=== PATIENT | male | born 1960 | race Caucasian/White ===

== ENCOUNTER 2024-12-25 19:33 | Day surgery (SDC) | payer MEDICARE, MEDICAID, SELFPAY ==
[2024-12-25 19:45] VITALS: BP 125/92; PULSE 108; RESP 16; TEMP 36.4; O2SAT 97; BMI 32.0
--- NOTE | 2024-12-25 19:45 | ED.GENADULT ---
HPI - General Adult General Chief complaint: General Medical Stated complaint: ? piece of chicken stuck in chest Time Seen by Provider: 12/25/24 22:10 Source: patient Mode of arrival: ambulatory Limitations: no limitations History of Present Illness ED Provider: Kai BONE HPI narrative: The patient is a 64-year-old male presenting to the ED with a history of recurrent esophageal foreign bodies with 2 previous esophageal dilations, most recently performed in 2017 while living in [place]. Patient reports they just recently moved to the area, today at approximately 16:30 he was eating chicken only developed the sensation of an esophageal foreign body with inability tolerate additional p.o. solids or fluids. Patient attempted drinking Coca-Cola without relief, has been spitting up saliva since that time and presents to the ED for evaluation and management. Related Data Home Medications ?Medication ?Instructions ?Recorded ?Confirmed apixaban 5 mg tablet (Eliquis) 5 mg PO BID 12/26/24 12/26/24 aripiprazole 2 mg tablet 2 mg PO BID 12/26/24 12/26/24 atorvastatin 10 mg tablet 10 mg PO DAILY 12/26/24 12/26/24 clonazepam 1 mg tablet 0.5 mg PO TID PRN anxiety 12/26/24 12/26/24 clonidine HCl 0.1 mg tablet 0.2 mg PO BEDTIME 12/26/24 12/26/24 gabapentin 300 mg capsule 900 mg PO TID 12/26/24 12/26/24 omeprazole 20 mg capsule,delayed 20 mg PO DAILY 12/26/24 12/26/24 release quetiapine 100 mg tablet 200 mg PO BEDTIME 12/26/24 12/26/24 sildenafil 25 mg tablet 25 mg PO NEEDED 12/26/24 12/26/24 Allergies Allergy/AdvReac Type Severity Reaction Status Date / Time No Known Allergies Allergy Verified 12/25/24 19:49 Review of Systems Review of Systems: Yes all other systems are reviewed and are negative PMFSH Past Medical History Medical History (Updated 12/26/24 @ 04:08 by Loreta Tse RN) Acute deep vein thrombosis (DVT) of calf muscle vein of left lower extremity History of pulmonary embolus (PE) Surgical History (Updated 12/26/24 @ 04:06 by Loreta Tse RN) Hx laparoscopic cholecystectomy Status post right rotator cuff repair Status post left rotator cuff repair History of esophagogastroduodenoscopy (EGD) Social History Social History Patient Tobacco Use Status: Never used Tobacco Advance Directives: No Advance Directives Information Provided: No Do you have a plan to hurt others: No Plan Physical Exam ED Vital Signs: Vital Signs - 24 hr 12/25/24 19:45 12/25/24 21:27 12/25/24 22:55 Temperature 97.6 F Pulse Rate 108 H 101 H 100 Respiratory Rate 16 18 Blood Pressure 125/92 H 127/95 H 128/92 H Pulse Oximetry 97 96 Oxygen Delivery Method Room Air Room Air Oxygen Flow Rate 12/25/24 23:54 12/26/24 03:03 12/26/24 03:05 Temperature 98.5 F 97.2 F Pulse Rate 106 H 99 Respiratory Rate 20 25 H Blood Pressure 106/80 83/46 L 102/64 Pulse Oximetry 95 89 L Oxygen Delivery Method Room Air Room Air Oxygen Flow Rate 94 12/26/24 03:08 12/26/24 03:13 12/26/24 03:18 Temperature Pulse Rate 98 97 100 Respiratory Rate 13 14 14 Blood Pressure 116/75 117/78 121/77 Pulse Oximetry 92 95 94 Oxygen Delivery Method Nasal Cannula with ETCO2 Nasal Cannula with ETCO2 Nasal Cannula with ETCO2 Oxygen Flow Rate 2 2 2 12/26/24 03:33 12/26/24 03:34 12/26/24 03:48 Temperature Pulse Rate 99 100 Respiratory Rate 17 20 Blood Pressure 148/88 H 142/87 H Pulse Oximetry 91 L 94 94 Oxygen Delivery Method Room Air Nasal Cannula with ETCO2 Nasal Cannula with ETCO2 Oxygen Flow Rate 2 2 12/26/24 04:03 12/26/24 04:08 12/26/24 04:13 Temperature Pulse Rate 99 Respiratory Rate 13 19 Blood Pressure 120/72 Pulse Oximetry 94 96 94 Oxygen Delivery Method Nasal Cannula with ETCO2 Nasal Cannula with ETCO2 Room Air Oxygen Flow Rate 2 2 BMI result Body Mass Index 32.0 CONSTITUTIONAL: The patient appears non-toxic, well nourished and in no acute distress. Vital signs as documented. HEAD: Atraumatic, normocephalic. EYES: EOMs grossly intact, pupils equal, conjunctiva clear, no exudate. ENT: Nares patent, no discharge. Airway patent, no audible stridor, visible mucosa is pink and moist without noted lesions. Posterior pharynx shows midline nonedematous uvula, no peritonsillar or tonsillar swelling, no tonsillar exudate, no visible pooling secretions. NECK: Trachea is midline, no obvious masses or gross abnormalities. CHEST: Symmetric movement, normal appearance. LUNGS: LS present and CTAB, no w/r/r. Non-labored work of breathing. CARDIAC: Regular Rhythm, S1/S2 appreciated, no murmurs, rubs or gallops. ABDOMEN: Abdomen soft and non-tender x4 quadrants, no palpable masses or organomegaly. : Deferred. EXTREMITIES: Normal tone, moves all extremities spontaneously without reported pain. No obvious acute injury or deformity noted. NEURO: Alert and oriented x3, CN II-XII appear grossly intact. Cerebellar Functioning grossly intact. No obvious sensory or motor deficits. Speech clear and appropriate. PSYCH: normal affect, appropriate eye contact, fluid speech, with appropriate response to questioning. No reported suicidality or homicidality. SKIN: Warm, dry, color appropriate, normal turgor. No rashes noted. Course Course Course Narrative: This is a rapid medical exam performed by Misael Cline NP: Additional HPI, ROS, PE not included below will be deferred to primary provider. Patient is a 64-year-old male with history of esophageal stricture and dilation x 2 presenting with complaint of foreign body sensation since around 4pm after eating chicken. Managing secretions without difficulty in triage but has been unable to tolerate liquids. When asked where he feels FB sensation, he points to xiphoid area. Medications Administered Discontinued Medications Generic Name Dose Route Start Last Admin Trade Name Freq PRN Reason Stop Dose Admin Glucagon 1 mg 12/25/24 22:26 12/25/24 22:55 Glucagon Hcl 1 Mg Vial IVPUSH 12/25/24 22:27 1 mg ONCE ONE Administration Nitroglycerin 0.4 mg 12/25/24 22:26 12/25/24 22:55 Nitroglycerin 0.4 Mg Tab.Subl SUBLINGUAL 12/25/24 22:27 0.4 mg ONCE ONE Administration Medical Decision Making Medical Decision Making MDM Narrative: 11:50 PM 12/25/2024 (Petros BONE): The patient is a 64-year-old male presenting to the ED with a history of recurrent esophageal foreign bodies with 2 previous esophageal dilations, most recently performed in 2017 while living in [place]. Patient reports they just recently moved to the area, today at approximately 16:30 he was eating chicken only developed the sensation of an esophageal foreign body with inability tolerate additional p.o. solids or fluids. Patient attempted drinking Coca-Cola without relief, has been spitting up saliva since that time and presents to the ED for evaluation and management. Exam was noncontributory. The patient was treated with glucagon and sublingual nitroglycerin, however unfortunately upon reassessment, despite attempted treatment, the patient continues to have inability to tolerate p.o. fluids and reports a persistent foreign body sensation. The patient's case has been discussed with Dr. Thomson from GI who will notify nursing field supervisor and will come in to perform endoscopy. 1:31 AM 12/26/2024 (Petros BONE): Dr. Thomson from GI is present in the ED to evaluate the patient. Admission/Observation Consideration of admission/observation: Escalation of care including admission/observation considered Lab Data 12/26/24 00:33 12/26/24 00:33 Labs: Lab Results 12/26/24 Range/Units 00:33 WBC 18.3 H (4.8-10.8) X10*3/uL RBC 6.11 H (4.60-5.80) X10*6/uL Hgb 17.8 (14.0-18.0) g/dl Hct 49.6 (42.0-52.0) % MCV 81.2 (80.0-98.0) fL MCH 29.1 (27.0-33.0) pg MCHC 35.9 (31.0-36.0) g/dl RDW 14.2 (11.0-16.0) % Plt Count 265 (160-400) X10*3/uL MPV 10.2 (9.4-12.4) fL Immature Gran % (Auto) 0.3 (0.0-0.4) % Neut % (Auto) 79.8 H (45-73) % Lymph % (Auto) 12.7 L (20-40) % Meagher % (Auto) 5.8 (2-11) % Eos % (Auto) 1.0 (0-4) % Baso % (Auto) 0.4 (0-2) % Lymph # (Auto) 2.3 (1.2-4.9) X10*3/uL Meagher # (Auto) 1.1 (0.1-1.2) X10*3/uL Eos # (Auto) 0.2 (0.0-0.4) X10*3/uL Baso # (Auto) 0.1 (0.0-0.2) X10*3/uL Abs Immat Gran (auto) 0.06 H (0.00-0.03) X10*3/uL Absolute Neuts (auto) 14.6 H (2.0-8.3) x10*3/uL Absolute Nucleated RBC 0.000 (0.0-0.012) X10*3/uL Nucleated RBC % (auto) 0.0 (0.0-0.2) /100WBC Sodium 143 (135-145) mmol/L Potassium 3.9 (3.3-5.1) mmol/L Chloride 109 H (96-108) mmol/L Carbon Dioxide 22 (22-29) mmol/L Anion Gap 16 (12-20) BUN 14 (9-16) mg/dL Creatinine 1.07 (0.5-1.4) mg/dL Estim Creat Clear Calc 90.4 Estimated GFR > 60 Random Glucose 119 H (60-115) mg/dL Calcium 9.4 (8.4-10.2) mg/dL Total Bilirubin 1.2 H (0.0-1.0) mg/dL AST 32 (5-37) U/L ALT 44 H (0-40) U/L Alkaline Phosphatase 137 H (39-117) U/L Total Protein 7.6 (6.5-8.0) g/dL Albumin 5.0 (3.5-5.0) g/dL Discharge Plan Discharge Clinical Impression: Esophageal foreign body Patient Disposition: Home, Self-Care Discharge Date/Time: 12/26/24 02:04
[2024-12-25 21:27] VITALS: BP 127/95; PULSE 101; RESP 18; O2SAT 96
[2024-12-25 22:55] VITALS: BP 128/92; PULSE 100
[2024-12-25 23:54] VITALS: BP 106/80; PULSE 106; RESP 20; TEMP 36.9; O2SAT 95
[2024-12-26] VITALS (12 sets, daily range): BP systolic 83–148; BP diastolic 46–88; PULSE 96–100; RESP 13–25; TEMP 36.2–37; O2SAT 89–96
[2024-12-26 00:39] LABS: MANUAL DIFF FLAG NO
[2024-12-26 00:40] LABS: Hematocrit 49.6 % (42.0-52.0); Hemoglobin 17.8 g/dl (14.0-18.0); Imm Gran Abs Auto 0.06 X10*3/uL (0.00-0.03); Imm Gran Pct Auto 0.3 % (0.0-0.4); Lymphocytes Absolute Auto 2.3 X10*3/uL (1.2-4.9); Mean Corpuscular HGB Conc 35.9 g/dl (31.0-36.0); Mean Corpuscular Hemoglobin 29.1 pg (27.0-33.0); Mean Corpuscular Volume 81.2 fL (80.0-98.0); NRBC Abs Auto 0.000 X10*3/uL (0.0-0.012); NRBC Pct Auto 0.0 /100WBC (0.0-0.2); Platelet Count 265 X10*3/uL (160-400); Red Blood Count 6.11 X10*6/uL (4.60-5.80); White Blood Count 18.3 X10*3/uL (4.8-10.8)
--- NOTE | 2024-12-26 00:52 | MHC.SHP ---
Pre-Procedural Eval Section A - 24 Hr Update-Section A only Date of Service: 12/26/24 The patient is an INPATIENT: No Changes since office visit: No Cold of Flu in the past 2 weeks, No New Medical Problems, No Changes in Medication and No Patient answered all questions The patient has been examined within 24 hours of the surgical procedure. The History & Physical has been completed within 30 days and I have reviewed it.: Yes Section B - Complete if H&P > 30 days Chief Complaint: ? piece of chicken stuck in chest Allergies: Allergies Allergy/AdvReac Type Severity Reaction Status Date / Time No Known Allergies Allergy Verified 12/25/24 19:49 Plan I have reviewed the history and physical and performed a pertinent physical examination on my patient. No changes have occurred unless specified. Time Spent With Patient Time: Total time managing care of this patient today ____ minutes.
[2024-12-26 00:58] LABS: Alanine Aminotransferase 44 U/L (0-40); Albumin Level 5.0 g/dL (3.5-5.0); Alkaline Phosphatase 137 U/L (39-117); Anion Gap 16 (12-20); Aspartate Amino Transferase 32 U/L (5-37); Blood Urea Nitrogen 14 mg/dL (9-16); Calcium 9.4 mg/dL (8.4-10.2); Carbon Dioxide 22 mmol/L (22-29); Chloride 109 mmol/L (96-108); Creatinine Clr Calc Pharmacy 90.4; Estimated Glomerular Filt Rate > 60; Potassium 3.9 mmol/L (3.3-5.1); Sodium 143 mmol/L (135-145); Total Protein 7.6 g/dL (6.5-8.0)
--- NOTE | 2024-12-26 01:53 | HO.ANESPROP2 ---
[facility] Active Problems Active Problems: All Active Problems Esophageal foreign body (Acute) Past Medical History Functional capacity: independent ambulation Family History Family history of problems with anesthesia: No Surgical History History of Problems with Anesthesia: No Social History Social History Patient Tobacco Use Status: Never used Tobacco Advance Directives: No Advance Directives Information Provided: No Do you have a plan to hurt others: No Plan Meds Allergies Allergy/AdvReac Type Severity Reaction Status Date / Time No Known Allergies Allergy Verified 12/25/24 19:49 Exam Height,Weight and Vital Signs: Height 6 ft Weight 107 kg Last Vital Signs Temp 98.5 F 12/25/24 23:54 Pulse 106 H 12/25/24 23:54 Resp 20 12/25/24 23:54 BP 106/80 12/25/24 23:54 Pulse Ox 95 12/25/24 23:54 O2 Del Method Room Air 12/25/24 23:54 O2 Flow Rate 94 12/25/24 23:54 Pertinent Lab Results Pertinent Lab Results: Laboratory Tests 12/26/24 00:33 WBC 18.3 H RBC 6.11 H Hgb 17.8 Hct 49.6 MCV 81.2 MCH 29.1 MCHC 35.9 RDW 14.2 Plt Count 265 MPV 10.2 Immature Gran % (Auto) 0.3 Neut % (Auto) 79.8 H Lymph % (Auto) 12.7 L [place] % (Auto) 5.8 Eos % (Auto) 1.0 Baso % (Auto) 0.4 Lymph # (Auto) 2.3 [place] # (Auto) 1.1 Eos # (Auto) 0.2 Baso # (Auto) 0.1 Abs Immat Gran (auto) 0.06 H Absolute Neuts (auto) 14.6 H Absolute Nucleated RBC 0.000 Nucleated RBC % (auto) 0.0 Sodium 143 Potassium 3.9 Chloride 109 H Carbon Dioxide 22 Anion Gap 16 BUN 14 Creatinine 1.07 Estim Creat Clear Calc 90.4 Estimated GFR > 60 Random Glucose 119 H Calcium 9.4 Total Bilirubin 1.2 H AST 32 ALT 44 H Alkaline Phosphatase 137 H Total Protein 7.6 Albumin 5.0 Airway Mallampati Class: III TM Dist: >3cm Neck ROM: Full Heart: RRR Lungs: CTA Assessment and Plan Assessment Anesthesia Assessment: Anesthesia Plan Discussed and Chart Reviewed Final Anesthetic Review Family History of Problems with Anesthesia: No History of Problems with Anesthesia: No ASA Class: II and Emergency Final Preanesthetic Review: Meds/Allgs Chart Reviewed, Consent Obtained/Reviewed and Anes Risks/Benef Reviewed Patient Risk: Intermediate Procedure Risk: Low Anesthetic Plan Anesthetic Plan: GA and MAC: Disposition: Standard PACU
--- NOTE | 2024-12-26 02:03 | PC.NURSE ---
leda navarrete in wheelchair, report given over phone and face to face with AEROSPACE TECHNICIAN.
--- NOTE | 2024-12-26 03:04 | CONS_ITS ---
DATE OF SERVICE: 12/26/2024 REFERRING PHYSICIAN: LIZANDRO Lombarid REASON FOR CONSULTATION: Esophageal foreign body. HISTORY OF PRESENT ILLNESS: The patient is a pleasant 64-year-old man who presented to the emergency room earlier tonight with symptoms of esophageal obstruction from a foreign body. He has had this happened in the past and has in the past required endoscopic dilation. He has a history of gastroesophageal reflux disease and is maintained on omeprazole, which he has been compliant with. In the emergency department, he could not handle secretions and was evaluated and presents for upper endoscopy. PAST MEDICAL HISTORY: 1. Hyperlipidemia. 2. Esophageal obstruction with dilation required in the past. 3. DVT/PE with history of Eliquis use, off for 5 days because he has had dental work recently. CURRENT MEDICATIONS: His current medication list is reviewed in the chart. ALLERGIES: THERE ARE NONE REPORTED. FAMILY HISTORY: This is reviewed with the patient and is noncontributory. SOCIAL HISTORY: There is no current tobacco, alcohol, or substance abuse. REVIEW OF SYSTEMS: SKIN: No pruritus. HEENT: Negative. CARDIOPULMONARY: No shortness of breath or chest pain. GASTROINTESTINAL: As above. GENITOURINARY: Negative. NEUROPSYCHIATRIC: Negative. PHYSICAL EXAMINATION: GENERAL: Shows a pleasant male. VITAL SIGNS: Reviewed in the electronic medical record and are stable. SKIN: Anicteric. HEENT: Shows no scleral icterus. NECK: Without lymphadenopathy or thyromegaly. LUNGS: Clear. HEART: Shows a regular rate and rhythm. S1, S2. No murmur. ABDOMEN: Soft without focal masses or tenderness. Bowel sounds are present. No organomegaly is noted. EXTREMITIES: Without edema. IMPRESSION: Esophageal foreign body. PLAN: Upper endoscopy. The risks and benefits of the procedure have been discussed with the patient who understands and agrees to proceed. MD ASHLEY Ballard/STEFANIA / [id number]
--- NOTE | 2024-12-26 03:43 | OP_ITS ---
DATE OF SERVICE: 12/26/2024 SURGEON: Dallas Thomson MD INDICATIONS: Esophageal foreign body with obstruction. PREOPERATIVE DIAGNOSIS: POSTOPERATIVE DIAGNOSIS: PROCEDURE PERFORMED: Upper endoscopy with removal of the esophageal foreign body. ESTIMATED BLOOD LOSS: COMPLICATIONS: ANESTHESIA: Monitored anesthesia care. ASSISTANTS: SPECIMENS: PROCEDURE DESCRIPTION: History and physical performed. The risks and benefits of the procedure were explained to the patient. Informed consent was obtained. The patient was placed in the left lateral decubitus position. The Olympus videogastroscope was introduced into the esophagus, stomach, and duodenum. Examination was performed. The scope was removed. He tolerated the procedure well and was taken to recovery in stable condition. FINDINGS: Esophagus: There was a large meat impaction in the distal esophagus. This was difficult to remove and required multiple intubation and piecemeal removal with a Smith net and a snare. The food was eventually partially removed with the Smith net and then pushed through into the stomach. There was distal esophagitis with a small sliding hiatal hernia. No balloon dilation was performed due to the esophagitis. Stomach: The stomach was normal. Duodenum: The bulb and 2nd portion were normal. IMPRESSION: Esophageal foreign body. RECOMMENDATION: Followup endoscopy after healing of distal esophagitis with possible balloon dilation. MD ASHLEY Ballard/ESTEBANL / [id number]
== END 2024-12-26 04:33 | disposition home or self-care (01) ==
LOC: HO.ED 12-26 02:03 → HO.SSS 12-26 04:01
PROVIDERS: Internal Medicine Gastroenterology; Emergency Provider Emergency Medicine; Visit Provider Physician Assistant
PROC: 0DJ08ZZ Inspection of Upper Intestinal Tract, Via Natural or Artificial Opening Endoscopic (ICD-10-PCS; CPT 43235; principal; 2024-12-26 01:30)
DX: T18.128A Food in esophagus causing other injury, initial encounter (principal); W44.F3XA Food entering into or through a natural orifice, initial encounter; K20.80 Other esophagitis without bleeding; K44.9 Diaphragmatic hernia without obstruction or gangrene; K21.9 Gastro-esophageal reflux disease without esophagitis; E78.5 Hyperlipidemia, unspecified; Z86.718 Personal history of other venous thrombosis and embolism; Z86.711 Personal history of pulmonary embolism; Z79.01 Long term (current) use of anticoagulants; Z79.02 Long term (current) use of antithrombotics/antiplatelets; Z79.899 Other long term (current) drug therapy
CPT/HCPCS: 43247; 43251; 36415; 80053; 85025; 96374; 99283; 99285; J1610